=== PATIENT | female | born 1975 | race Caucasian/White ===

== ENCOUNTER 2018-01-14 20:21 | Emergency (ER) | payer MEDICAID, OTHER ==
[2018-01-15] MEDS: DEXAMETHASONE 10 MG/ML 1 ML INJ IM (00:15)
== END 2018-01-15 02:28 | disposition home or self-care (01) ==
LOC: FTE 01-15 02:28
DX: N18.9 Chronic kidney disease, unspecified (principal); N18.6 End stage renal disease; R40.2412 Glasgow coma scale score 13-15, at arrival to emergency department; Z99.2 Dependence on renal dialysis
CPT/HCPCS: 96372; 99284-25; J1100

== ENCOUNTER 2018-01-18 19:33 | Emergency (ER) | payer MEDICAID | END 2018-01-18 22:13 | disposition home or self-care (01) | LOC: FTE 19:33 | DX: B02.9 Zoster without complications (principal); I10 Essential (primary) hypertension | CPT/HCPCS: 99284; Z7502 ==